=== PATIENT | female | born 1990 | race African-American/Black ===

== ENCOUNTER 2018-10-17 13:43 | Emergency (ER) | payer SELFPAY ==
[~2018-10-17] VITALS: Ht 170.2 cm; Wt 59.0 kg
[~2018-10-17 13:43] MED LIST: IBUP-2030; TRAM50TA3
[2018-10-17 13:53] VITALS: BP 140/86
== END 2018-10-17 18:49 | disposition left against medical advice (07) ==
LOC: ER 13:51
DX: R10.9 Unspecified abdominal pain (principal); Z53.21 Procedure and treatment not carried out due to patient leaving prior to being seen by health care provider